=== PATIENT | female | born 1995 | race Two or more races ===

== ENCOUNTER 2017-11-11 13:01 | Emergency (ER) | payer MEDICAID ==
[~2017-11-11] VITALS: Ht 162.6 cm; Wt 59.0 kg
[2017-11-11] MEDS ORDERED: Fluorescein Strips LEFT EYE ONE (13:45)
[2017-11-11] MEDS ORDERED: HYDROcodone/Acetamin 7.5/325 tab ORAL ONE (14:15)
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
[2017-11-11] MEDS ORDERED: TYLENOL EXTRA500 MG ORAL (15:06)
[2017-11-11] MEDS ORDERED: ROBAXIN500 MG PO (15:06)
[2017-11-11] MEDS ORDERED: CEPHALEXIN500 MG ORAL (15:06)
[2017-11-11] MEDS ORDERED: BACITRACIN-P28.35 GM TP (15:08)
[2017-11-11] MEDS ORDERED: Lidocaine 1% Plain 30 ml INJ ONE (15:15)
[2017-11-11] MEDS ORDERED: Bacitracin Oint UD TOPIC ONE (15:45)
[2017-11-11 15:58] VITALS: BP 116/79
--- NOTE | 2017-11-11 17:20 | Diagnostic Imaging Report ---
Indication: Pain Technique: 3 views right hand Comparison: none Findings: No acute fractures. No dislocations. Joint spaces are preserved. Impression: Negative
== END 2017-11-11 15:58 | disposition home or self-care (01) ==
LOC: EDBD 13:01 → EMR 13:14
DX: S00.83XA Contusion of other part of head, initial encounter (principal); S61.101A Unspecified open wound of right thumb with damage to nail, initial encounter; S30.0XXA Contusion of lower back and pelvis, initial encounter; S00.03XA Contusion of scalp, initial encounter; Y04.2XXA Assault by strike against or bumped into by another person, initial encounter; Y92.9 Unspecified place or not applicable; J45.909 Unspecified asthma, uncomplicated
CPT/HCPCS: 70450; 70486; 73130; 99284; J2001